=== PATIENT | male | born 1965 | race Caucasian/White ===

== ENCOUNTER 2017-11-04 10:30 | Outpatient (CLI) | END 2017-11-04 10:31 | disposition home or self-care (01) | LOC: CAR 10:30 | PROVIDERS: ATTEND Physician Assistant | DX: I10 Essential (primary) hypertension (principal) | CPT/HCPCS: 93005; 93010 ==

== ENCOUNTER 2017-11-07 11:25 | Emergency (ER) ==
[2017-11-07 11:34] VITALS: BP 102/86; TEMP 97.2; BMI 27.1
--- NOTE | 2017-11-07 12:26 | DI ---
EXAM: Chest two view, frontal and lateral views. HISTORY: Chest pain. COMPARISON: 10/30/2010. FINDINGS: The heart size is normal. There is no pulmonary vascular congestion. The lungs are clear save for calcified granulomatous changes. No pleural effusion or pneumothorax is seen. No acute os seous abnormality identified. ACDF changes noted. Old left anterior fifth rib fracture noted. Sinc e the prior study, there has been no significant interval change. IMPRESSION: No acute cardiopulmonary process.
--- NOTE | 2017-11-07 12:53 | ED.PDOC ---
General ED Provider: Dr. DOROTEO ZULUAGA Chief Complaint: Chest Pain Stated Complaint: chest pain Time Seen by Physician: 11:27 (chest painx 2 days intermittent ) Mode of Arrival: Walk-In Information Source: Patient, Family Exam Limitations: No limitations Primary Care Provider: LATRELL THOMAS Nursing and Triage Documentation Reviewed and Agree: Yes (took one 81mg ASA TODAY) Reviewed sepsis parameters & appropriate labs ordered?: Yes System Inflammatory Response Syndrome: Not Applicable Sepsis Protocol: For patient's 13 years and over: Temp is 96.8 and below OR 101 and greater Pulse >90 BPM Resp >20/minute Acutely Altered Mental Status Are patient's symptoms suggestive of a new infection, such as: -Pneumonia -Skin, Soft Tissue -Endocarditis -UTI -Bone, Joint Infection -Implantable Device -Acute Abdominal Infection -Wound Infection -Meningitis -Blood Stream Catheter Infection -Unknown System Inflammatory Response Syndrome: Not Applicable Cardiovascular Complaint Exam - Chest Pain Complaint/Exam Onset: Gradual Duration: 2 days Symptoms Are: Still present Timing: Intermittent Length of Chest Pain Episodes: 20 min Initial Severity: Moderate Current Severity: Mild Location: Reports: Midsternal Pain Radiates: Reports: None Character: Reports: Dull Aggravating: Reports: None Alleviating: Reports: None Associated Signs and Symptoms: Denies: Diaphoresis, Nausea, Vomiting, Fever, Palpitations, Cough, Hemoptysis, Back pain, Abdominal pain, Dizziness, Short of air, Calf pain, Calf swelling Related History: Reports: Similar episode Related Surgical History: Reports: None AMI/ACS Risk Factors: Reports: Hypertension, Dyslipidemia TAD Risk Factors: Reports: Hypertension Pulmonary Embolism Risk Factors: Reports: None Prior Care for this Complaint: No Recent Stress Test: No Recent Echo/LV Function: No JVD Present: No Subcutaneous Emphysema Present: No Diminshed Breath Sounds: No Reproducible Chest Wall Pain: No Bilateral Pulses Present: No Unequal Pulses Noted: No If Risk Factors for AMI/ACS Consider: EKG, Cardiac Enzymes Review of Systems - Review Of Systems Constitutional: Reports: No symptoms Eyes: Reports: No symptoms Ears, Nose, Mouth, Throat: Reports: No symptoms Respiratory: Reports: No symptoms Cardiac: Reports: Chest pain GI: Reports: No symptoms : Reports: No symptoms Musculoskeletal: Reports: No symptoms Skin: Reports: No symptoms Neurological: Reports: No symptoms Endocrine: Reports: No symptoms Hematologic/Lymphatic: Reports: No symptoms All Other Systems: Reviewed and Negative Past Medical History - Past Medical History Previously Healthy: Yes Endocrine: Reports: Dyslipidemia Cardiovascular: Reports: Hypertension Respiratory: Reports: None Hematological: Reports: None Gastrointestinal: Reports: None Genitourinary: Reports: None Neuro/Psych: Reports: None Musculoskeletal: Reports: None Cancer: Reports: None - Surgical History General Surgical History: Reports: None - Family History Family History: Reports: None - Social History Smoking Status: Never smoker Hx Substance Use: No Alcohol Screening: None - Immunizations Tetanus Shot up to Date: No Physical Exam - Physical Exam Appearance: Well-appearing, No pain distress, Well-nourished Eyes: GRICEL, EOMI, Conjunctiva clear ENT: Ears normal, Nose normal, Oropharynx normal Respiratory: Airway patent, Breath sounds clear, Breath sounds equal, Respirations nonlabored Cardiovascular: RRR, Pulses normal, No rub, No murmur GI/: Soft, Nontender, No masses, Bowel sounds normal, No Organomegaly Musculoskeletal: Normal strength, ROM intact, No edema, No calf tenderness Skin: Warm, Dry, Normal color Neurological: Sensation intact, Motor intact, Reflexes intact, Cranial nerves intact, Alert, Oriented Psychiatric: Affect appropriate, Mood appropriate Interpretation - [place] Rate: Normal Rhythm: Sinus Ectopy: None - EKG Interpretation Rate: Normal Rhythm: Sinus Ectopy: None [place]: NL ST Segment: Normal Re-Evaluation - Re-Evaluation Time of Re-Evaluation: 12:54 Status: Improved Vital Signs Stable: Yes Pain Level: 0 Appearance: NAD Lungs: Clear Skin: Warm and Dry Neuro: Alert and Oriented X3 CV: RRR Physician Notification - Case Discussed Physician Notified: INGE ZAPATA Time of Notification: 12:59 (TRANSFER ) Critical Care Note - Critical Care Note Total Time (mins): 0 Course - Course Hematology/Chemistry: 11/07/17 11:39 11/07/17 11:39 Orders, Labs, Meds: Lab Review 11/07/17 11/07/17 11:39 11:39 WBC 10.01 RBC 5.98 Hgb 17.7 Hct 50.8 MCV 84.9 MCH 29.6 MCHC 34.8 RDW Coeff of Genesis 12.9 Plt Count 266 Immature Gran % (Auto) 0.4 Neut % (Auto) 76.6 Lymph % (Auto) 14.5 [place] % (Auto) 6.8 Eos % (Auto) 1.3 Baso % (Auto) 0.4 Immature Gran # (Auto) 0.0 Neut # (Auto) 7.7 H Lymph # (Auto) 1.5 Edmunds # (Auto) 0.7 Eos # (Auto) 0.1 Baso # (Auto) 0.0 Sodium 133 L Potassium 5.8 H Chloride 99 Carbon Dioxide 23 Anion Gap 16.8 BUN 30 H Creatinine 1.47 H Estimated GFR (MDRD) 51.00 BUN/Creatinine Ratio 20.40 Glucose 113 H Calcium 10.8 H Total Bilirubin 1.1 AST 33 ALT 44 Alkaline Phosphatase 132 Total Creatine Kinase 143 CK-MB (CK-2) 1.7 CK-MB (CK-2) % 1.63635 Troponin I < 0.0100 Total Protein 9.3 H Albumin 5.1 H Globulin 4.2 Albumin/Globulin Ratio 1.21 Orders Category Date Time Status EKG-(ED ONLY) Stat CARDIO 11/07/17 11:30 Completed EKG-(ED ONLY) Stat CARDIO 11/07/17 12:11 Ordered CBC W/ AUTO DIFF Stat LAB 11/07/17 11:39 Completed COMPREHENSIVE METABOLIC PANEL Stat LAB 11/07/17 11:39 Received CREATINE KINASE Stat LAB 11/07/17 11:39 Received TROPONIN I Stat LAB 11/07/17 11:39 Received CHEST, 2 VIEWS PA & LAT Stat RADS 11/07/17 11:30 Ordered Vital Signs: Temp Pulse Resp BP Pulse Ox 11/07/17 11:26 97.2 F L 98 H 16 102/86 99 AMI Core - Clinical Trial Participant Clinical Trial Participant: No SHELTON Risk Score Age >/= 65: No >/= 3 CAD Risk Factors: No Known CAD (Stenosis >/= 50%): No ASA Use in Past 7 Days: Yes Severe Angina (>/= 2 episodes in 24 hours): No EKG ST Changes >/= 0.5mm: No Postive Cardiac Marker: No SHELTON Total Score: 1 SHELTON Risk Score: Risk Score Odds of by 30D 0 0.1 (0.1-0.2) 1 0.3 (0.2-0.3) 2 0.4 (0.3-0.5) 3 0.7 (0.6-0.9) 4 1.2 (1.0-1.5) 5 2.2 (1.9-2.6) 6 3.0 (2.5-3.6) 7 4.8 (3.8-6.1) Departure - Departure Time of Disposition: 12:53 Disposition: TSF SHORT-TRM HOSP Discharge Problem: Chest pain Instructions: Chest Pain (ED) Condition: Good Pt referred to PMD for follow-up: Yes IPMP verified?: No Additional Instructions: Please call your Family Physician as soon as possible to schedule a follow-up appointment. Allergies/Adverse Reactions: Allergies diazepam [From Valium] Adverse Reaction (Verified 11/07/17 11:38) diphenhydramine [From Benadryl] Adverse Reaction (Verified 11/07/17 11:38) Home Medications: Ambulatory Orders Aspirin [Aspirin EC] 81 mg PO DAILY 11/07/17 Cetirizine HCl [Zyrtec] 10 mg PO DAILY 11/07/17 Cyclobenzaprine HCl 15 mg PO BEDTIME 11/07/17 Esomeprazole Magnesium [Nexium] 40 mg PO DAILY 11/07/17 Eszopiclone [Lunesta] 3 mg PO BEDTIME 11/07/17 Hydrochlorothiazide 12.5 mg PO DAILY 11/07/17 Hydrocodone Bit/Acetaminophen [[place] 7.5-325] 1 tab PO TID 11/07/17 Losartan Potassium 100 mg PO DAILY 11/07/17 Simvastatin 20 mg PO DAILY 11/07/17 Disposition Discussed With: Patient, Family
[2017-11-07] MEDS ORDERED: ASPIRIN CHEWABLE PO STA (12:55)
== END 2017-11-07 13:24 | disposition short-term general hospital (02) ==
LOC: ED 11:25
DX: R07.9 Chest pain, unspecified (principal); I10 Essential (primary) hypertension; E78.5 Hyperlipidemia, unspecified; Z79.899 Other long term (current) drug therapy
CPT/HCPCS: 36415; 80053; 82550; 82553; 84484; 85025; 93005; 93010; 99285

== ENCOUNTER 2017-11-12 07:52 | Outpatient (CLI) | END 2017-11-12 07:53 | disposition home or self-care (01) | LOC: LAB 07:52 | PROVIDERS: ATTEND Physician Assistant | DX: E87.5 Hyperkalemia (principal) | CPT/HCPCS: 36415; 80053 ==

== ENCOUNTER 2017-12-16 14:14 | Outpatient (CLI) ==
--- NOTE | 2017-12-16 16:03 | DI ---
EXAM: Two views of the chest. History: Short of breath Comparison: Chest radiograph 11/07/2017 Findings: Heart size is normal. No focal consolidation. No appreciable pleural fluid and no pneumo thorax. No acute osseous abnormalities. Impression: No acute cardiopulmonary process
== END 2017-12-16 14:15 | disposition home or self-care (01) ==
LOC: LAB 14:14 → RAD 14:15
PROVIDERS: ATTEND Physician Assistant
DX: R06.02 Shortness of breath (principal)

== ENCOUNTER 2018-01-01 12:27 | Outpatient (CLI) | END 2018-01-01 12:28 | disposition home or self-care (01) | LOC: CAR 12:27 | PROVIDERS: ATTEND Physician Assistant | DX: R05 Cough (principal) ==

== ENCOUNTER 2018-05-15 08:03 | Outpatient (CLI) ==
--- NOTE | 2018-05-15 11:11 | US ---
EXAM: Ultrasound abdomen complete. HISTORY: Elevated liver enzymes COMPARISON: None available TECHNIQUE: Abdominal, real time with image documentation: Complete. FINDINGS: Liver: Mildly increased parenchymal echogenicity compared to the adjacent right kidney with sli ght coarsening of the echotexture pattern. No intrahepatic biliary dilatation. Portal venous flow i s normal direction. Gallbladder: Normal. Common bile duct: 0.4 cm. Pancreas: Visualized portions are unremarkable. Spleen: Normal, length 11.4 cm. Right kidney: 10.9 cm length. No hydronephrosis. Left kidney: 10.7 cm in length. No hydronephrosis. Aorta: Visualized portions are normal in caliber. IVC: Visualized portions are normal in caliber. IMPRESSION: Mild fatty infiltration of the liver.
== END 2018-05-15 08:04 | disposition home or self-care (01) ==
LOC: RAD 08:03
PROVIDERS: ATTEND Internal Medicine Gastroenterology
DX: R94.5 Abnormal results of liver function studies (principal)
CPT/HCPCS: 36415; 80074; 80076; 82390; 82728; 83516; 83540; 83550; 84443; 85025; 85610; 86038